=== PATIENT | male | born 1980 | race Caucasian/White ===

== ENCOUNTER 2020-08-22 15:10 | Outpatient (CLI) | payer OTHER ==
--- NOTE | 2020-08-22 15:47 | SLEEP CARE CONSULTATION ---
Information from patient questionnaire entered by Sharmila Patel. I have reviewed and concur with the information entered by Sharmila Patel. This document represents the service I personally performed and the decisions made by me, Virginia Santos ARNP. History of Present Illness Service Date and Time: 08/22/2020 1510 Reason for Visit: New patient, Previously diagnosed sleep apnea, sleep apnea on CPAP therapy Chief Complaint: reports: Unrefreshed sleep, Snoring, Excessive daytime sleepiness, Observed pauses in breathing, Fatigue Date of Onset: 8 years plus Usual bedtime: 11 pm Time it takes to fall asleep: 30 minutes Snores at night: Yes Observed to quit breathing while asleep: Yes Sleeps alone due to snoring: No Number of times waking at night: 2-3 Reasons for waking at night: reports: Snoring, Gasping for air. denies: Choking Toss, Turn, or Twitch while sleeping: Yes Recalls having dreams: Yes Usually gets out of bed at: 5:30 am; weekends 0800 Feels refreshed in the morning: No Morning headache: No Sleepy or fatigued during the day: Yes Ever fallen asleep while driving: No Takes day naps: Yes (daily for about 30 minutes) Dreams during day naps: Yes Prior sleep studies: Yes Year and Where: 8 years ago - [facility] Additional HPI information: SULLY GALEAS was previously diagnosed to have sleep apnea-hypopnea syndrome and comes in today for retesting and to establish care. Patient continues to have fatigue, observed pauses in breathing, snoring excessive daytime sleepiness and unrefreshed sleep. He had a sleep study done but does not remember the severity of his sleep apnea. He states after getting set up on a CPAP he never had any other follow-up appointments. He has been on again/off again CPAP user since then. He has not used a CPAP in at least 2 years because he was unable to get supplies. He does not have a copy of his sleep study that was done over 8 years ago. He has gained about 10 pounds since the last study was done. He returns to establish care and determine if he still needs his CPAP machine. He denies family history of sleep apnea or other sleep disorders. 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 Patient is and lives in [place]. Have you smoked in the past 12 months: No Cigarettes per day (20/pack): 10 Years of smokin Quit date: 7 years Smoking Pack Years: 7.5 Alcohol use: Yes Alcohol amount and frequency: 2-3 drinks 3-4- days a week Caffeine use: Yes Caffeine amount and frequency: 2 cups of coffee everyday Family History Family history of sleep disordered breathing: No Allergies and Home Medications Drug allergies reviewed: Yes (NKDA) Home medication list reviewed: Yes Allergy and home medication list: Metoprolol Citalopram Review of Systems Weight gain over past 5 years: 10 Cardiovascular: reports: high blood pressure, palpitations Gastrointestinal: denies: heartburn Neurological: denies: headaches Psychiatric: reports: anxiety. denies: depression Ear/Nose/Throat: reports: wisdom teeth removed. denies: tonsillectomy Endocrine: denies: thyroid disease Musculoskeletal: reports: joint pain, neck pain, back pain Physical Exam Blood Pressure: 140/84 Cuff size: wrist Heart Rate: 70 O2 Saturation: 97 Height: 5 ft 7 in Weight: 190 lb Body Mass Index: 29.7 BMI Classification: Overweight Impression and Plan 1. Suspected Obstructive Sleep Apnea-Hypopnea Syndrome, as previously diagnosed over 8 years ago and as suggested by a continued history of irregular snoring, observed cessation of breath while asleep, gasping or choking in sleep, unrefreshed sleep, and excessive daytime sleepiness. I recommend proceeding to polysomnography to confirm the diagnosis and to assess severity. If the patient has significant sleep disordered breathing, a manual CPAP titration study will also be performed to find the optimal treatment pressure. I informed the patient of what the sleep studies involve and after some discussion, obtained agreement to proceed. The pathophysiology of obstructive sleep apnea-hypopnea syndrome was discussed with the patient and health risks of cardiovascular and cerebrovascular disease if not treated. 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 Patient agreed to plan. * Schedule polysomnography +- manual CPAP titration study and return in 1-2 weeks after the study to discuss result and initiate therapy. * Avoid long distance driving or driving when feeling sleepy. * Avoid alcohol, sedative and muscle relaxant around bedtime. * Attempt to lose weight. * Review instructions provided by trained office staff on how to prepare for the sleep study. * Return for follow-up after sleep study completed. Counseling Topics: Weight loss health impact Visit Type: In Office Time Spent with Patient (minutes): 30 Provider Statement: I spent 100% of the Face to Face Visit with the patient with greater than 50% spent counseling the patient and coordination of care.
[2020-08-22 15:48] VITALS: BP 140/84
== END 2020-08-22 15:11 | disposition home or self-care (01) ==
LOC: SC 15:10
PROVIDERS: ATTEND Nurse Practitioner Family
DX: G47.33 Obstructive sleep apnea (adult) (pediatric) (principal); E66.3 Overweight; Z68.29 Body mass index [BMI] 29.0-29.9, adult
CPT/HCPCS: 99203; 99212

== ENCOUNTER 2020-08-24 12:58 | Outpatient (CLI) | payer OTHER | END 2020-08-24 12:59 | disposition home or self-care (01) | LOC: SC 12:58 | PROVIDERS: ATTEND Nurse Practitioner Family | DX: Z53.20 Procedure and treatment not carried out because of patient's decision for unspecified reasons (principal) | CPT/HCPCS: 95806 ==

== ENCOUNTER 2020-09-20 20:44 | Outpatient (CLI) | payer OTHER | END 2020-09-20 20:45 | disposition home or self-care (01) | LOC: SC 20:44 | PROVIDERS: ATTEND Nurse Practitioner Family | DX: G47.33 Obstructive sleep apnea (adult) (pediatric) (principal) | CPT/HCPCS: 95810 ==

== ENCOUNTER 2020-10-02 11:23 | Outpatient (CLI) | payer OTHER ==
--- NOTE | 2020-10-02 11:52 | SLEEP CARE CONSULTATION ---
Information from patient questionnaire entered by Sharmila Patel. I have reviewed and concur with the information entered by Sharmila Patel. This document represents the service I personally performed and the decisions made by , Virginia Santos ARNP. History of Present Illness Service Date and Time: 10/02/2020 1123 Initial [place] Sleepiness Scale score: 10 (in 2020) Current [place] Sleepiness Scale score: 9 Additional HPI information: SULLY GALEAS returns for follow up and results of the recently performed polysomnography. The patient was informed of the following findings: No significant sleep disordered breathing with an average AHI 1.4 and eddie oxygen saturation of 88%. I explained the pathophysiology behind obstructive sleep apnea. Patient does not have sleep apnea and was advised how weight gain could increase the risk of developing sleep apnea in the future. I strongly encouraged the patient to lose weight. Patient has light to moderate snoring. Snoring can be reduced by weight loss. Weight loss is best achieved with diet consult. Patient instructed to contact PCP for referral. Snoring can also be treated with an oral appliance from a dentist. Advised to check insurance coverage. In addition, an ENT evaluation can be do to see if other treatment is indicated. Patient counseled not drink alcohol less than 4 hours before bedtime as it can increase snoring and apnea. Patient was cautioned about risks of drowsy driving until sleepiness symptoms resolve. Sleep Study - Results Type of Sleep Study: Polysomnography Prior sleep studies: Yes Year and Where: 8 years ago - [facility] Polysomnography/Home Sleep Study results: IMPRESSION: The quality of the study is good. The patient had normal sleep efficiency. The sleep architecture was normal as well. Respiratory monitoring showed no significant sleep disordered breathing (AHI = 1.4) or hypoxia (eddie oxygen saturation of 88% and only 0.3% to the total sleep time was spent with oxygen saturation below 90%). The patient slept adequately in supine position (supine AHI = 4.9; non-supine = 0.54). Snore was light to moderate in intensity. There was no significant periodic leg movement of sleep. Cardiac rhythm was normal sinus rhythm without significant arrhythmia. No abnormal behavior (parasomnia) observed during the [facility] Allergies and Home Medications Home medication list reviewed: Yes (no changes) Review of Systems Review of systems same as previous: Yes (no changes) Physical Exam Heart Rate: 69 O2 Saturation: 97 Height: 5 ft 7 in Weight: 181 lb Body Mass Index: 28.3 BMI Classification: Overweight Impression and Plan Snoring but no significant sleep disordered breathing. Patient advised that often weight loss will reduce snoring as well as apnea risk. An oral appliance can also be used for snoring. This would require a dental consultation. Patient cautioned not to use other online appliances as can cause bite issues. A list of accredited dentists in [facility] and one local dentist who makes oral appliances is available in the office. Patient is advised to check if insurance will cover. An ENT consult can also be helpful to determine if any other treatment is an option. Patient supine AHI is 4.9 and patient was advised to avoid sleeping supine. * Attempt to lose weight * Avoid alcohol consumption near bedtime * Avoid sleeping supine * The patient is cautioned about driving until sleepiness is completely resolved. * Return as needed for follow up. Counseling Topics: Sleeping position, Weight loss health impact Visit Type: In Office Time Spent with Patient (minutes): 11 Provider Statement: I spent 100% of the Face to Face Visit with the patient with greater than 50% spent counseling the patient and coordination of care.
== END 2020-10-02 11:24 | disposition home or self-care (01) ==
LOC: SC 11:23
PROVIDERS: ATTEND Nurse Practitioner Family
DX: R06.83 Snoring (principal); E66.3 Overweight; Z68.28 Body mass index [BMI] 28.0-28.9, adult
CPT/HCPCS: 99212

== ENCOUNTER 2023-07-17 13:05 | Outpatient (CLI) | payer OTHER ==
[2023-07-17 13:15] LABS: BASOPHILS # (AUTO) 0.1 10^3/uL (0.0-0.1); BASOPHILS % (AUTO) 0.9 %; EOSINOPHILS # (AUTO) 0.1 10^3/uL (0.0-0.7); EOSINOPHILS % (AUTO) 1.1 %; HCT - HEMATOCRIT 41.8 % (42.0-52.0); HGB - HEMOGLOBIN 13.5 g/dL (14.0-18.0); LYMPHOCYTES # (AUTO) 2.7 10^3/uL (1.5-3.5); MEAN CORPUSCULAR HEMOGLOBIN 30.3 pg (27.0-31.0); MEAN CORPUSCULAR HGB CONC 32.3 g/dL (32.0-36.0); MEAN CORPUSCULAR VOLUME 93.7 fL (80.0-94.0); MEAN PLATELET VOLUME 8.9 fL (7.4-11.4); MONOCYTES # (AUTO) 0.7 10^3/uL (0.0-1.0); MONOCYTES % (AUTO) 9.4 %; NEUTROPHILS # (AUTO) 3.5 10^3/uL (1.5-6.6); NEUTROPHILS % (AUTO) 50.2 %; PLT - PLATELET COUNT 279 10^3/uL (130-450); RED BLOOD COUNT 4.46 10^6/uL (4.70-6.10); RED CELL DISTRIBUTION WIDTH 12.5 % (12.0-15.0)
[2023-07-17 13:33] LABS: ALBUMIN 4.6 g/dL (3.2-5.5); ALBUMIN/GLOBULIN RATIO 1.6 (1.0-2.2); ALKALINE PHOSPHATASE 50 IU/L (42-121); ALT ALANINE AMINOTRANSFERASE 23 IU/L (10-60); AST ASPARTATE AMINOTRANSFERASE 21 IU/L (10-42); BILIRUBIN,TOTAL 0.6 mg/dL (0.2-1.0); BUN - BLOOD UREA NITROGEN 14 mg/dL (6-20); CALCIUM 9.6 mg/dL (8.5-10.3); CARBON DIOXIDE - CO2 31 mmol/L (21-32); CHLORIDE 103 mmol/L (101-111); CHOL/HDL RATIO 2.6 (<5.0); CHOLESTEROL 190 mg/dL; GFR - MDRD 82 (>89); GLUCOSE 108 mg/dL (74-104); HDL CHOLESTEROL 73 mg/dL; LDL CHOLESTEROL,CALCULATED 103 mg/dL; LDL/HDL RATIO 1.4 (<3.6); POTASSIUM 3.8 mmol/L (3.5-4.5); SODIUM 139 mmol/L (135-145); TOTAL PROTEIN 7.4 g/dL (6.4-8.9); TRIGLYCERIDES 68 mg/dL (48-352); VLDL CHOLESTEROL 14 mg/dL
[2023-07-17 13:42] LABS: THYROID STIMULATING HORMONE 0.98 uIU/mL (0.34-5.60)
== END 2023-07-17 13:06 | disposition home or self-care (01) ==
LOC: LAB 13:05
PROVIDERS: ATTEND Nurse Practitioner Family
DX: I10 Essential (primary) hypertension (principal); G47.30 Sleep apnea, unspecified; F41.9 Anxiety disorder, unspecified; F32.A Depression, unspecified; D64.9 Anemia, unspecified
CPT/HCPCS: 36415; 80053; 80061; 82607; 82746; 83540; 83721; 84443; 84466; 85025